=== PATIENT | female | born 1955 | race Caucasian/White ===

== ENCOUNTER → 2017-05-23 | Outpatient (REF) | payer MEDICARE ==
[2017-05-23 18:45] LABS: VITAMIN B12 LEVEL 544 PG/ML (247-911)
== END ==
LOC: M LABNEURO 15:10
DX: D51.9 Vitamin B12 deficiency anemia, unspecified (principal)
CPT/HCPCS: 82607

== ENCOUNTER → 2018-11-26 | Outpatient (REF) | payer MEDICARE ==
[2018-11-26 15:01] LABS: FOLATE 12.6 NG/ML; FREE T4 1.02 NG/DL (0.76-1.46); RHEUMATOID FACTOR QUANT < 10.0 IU/ML (<15.0); VITAMIN B12 LEVEL 943 PG/ML
[2018-12-01 00:08] LABS: ANTINUCLEAR ANTIBODIES DIRECT Negative (Negative); VITAMIN B1 LEVEL WHOLE BLOOD 213.3 nmol/L (66.5-200.0); VITAMIN B6,PYRIDOXAL PHOSPHATE 54.9 ug/L (2.0-32.8); VITAMIN E(ALPHA TOCOPHEROL) 9.7 mg/L (9.0-29.0); VITAMIN E(GAMMA TOCOPHEROL) 1.5 mg/L (0.5-4.9)
== END ==
LOC: M LABNEURO 10:43
PROVIDERS: ATTEND Psychiatry & Neurology Neurology
DX: E11.9 Type 2 diabetes mellitus without complications (principal); E07.9 Disorder of thyroid, unspecified; R20.2 Paresthesia of skin